=== PATIENT | female | born 1960 | race Caucasian/White ===

== ENCOUNTER → 2016-06-27 | Outpatient (CLI) | payer BC ==
[2016-06-27 19:48] LABS: Basophils # (A) 0.1 k/uL (0-0.2); Basophils % (A) 1 %; CH 30.4; CHCM 32.3; Eosinophils % (A) 1 %; HCT 41.9 % (34.0-46.0); HDW 2.45; HGB 13.7 gm/dL (11.4-16.0); Luc # (Auto) 0.14; Luc % (Auto) 2; Lymphocytes # (A) 2.2 k/uL (1.0-4.8); Lymphocytes % (A) 34 %; MCH 30.9 pg (25.0-35.0); MCHC 32.7 g/dL (31.0-37.0); MCV 94.5 fL (80.0-100.0); Monocytes # (A) 0.5 k/uL (0-1.0); Monocytes % (A) 7 %; Neutrophils # (A) 3.6 k/uL (1.3-7.7); Neutrophils % (A) 56 %; RBC 4.43 m/uL (3.80-5.40); RDW 12.4 % (11.5-15.5); WBC 6.6 k/uL (3.8-10.6); WBC (Perox) 6.38
[2016-06-27 20:15] LABS: Follicle Stimulating Hormone 25.8 mIU/mL
== END ==
LOC: MMGSC 16:57
PROVIDERS: ATTEND Family Medicine
DX: R53.83 Other fatigue (principal); E34.9 Endocrine disorder, unspecified
CPT/HCPCS: 36415; 82670; 83001; 83002; 84403; 84439; 84443; 85025

== ENCOUNTER → 2016-10-02 | Outpatient (CLI) | payer BC ==
[2016-10-02 19:03] LABS: Follicle Stimulating Hormone 24.8 mIU/mL
== END ==
LOC: MMGSC 16:01
PROVIDERS: ATTEND Family Medicine
DX: Z09 Encounter for follow-up examination after completed treatment for conditions other than malignant neoplasm (principal); Z79.890 Hormone replacement therapy
CPT/HCPCS: 36415; 82670; 83001; 83002

== ENCOUNTER → 2017-09-24 | Outpatient (CLI) | payer BC ==
--- NOTE | 2017-09-25 08:13 | MM ---
Reason for exam: screening (asymptomatic). Last mammogram was performed 5 years and 2 months ago. History: Patient is postmenopausal and is nulliparous. Benign left mammotome panel of the left breast, November 21, 2007. Took hormonal contraceptives for 1 year beginning at age 22. Physical Findings: A clinical breast exam by your physician is recommended on an annual basis and results should be correlated with mammographic findings. MG 3D Screening Mammo W/Cad Bilateral CC and MLO view(s) were taken. Technologist: RT Nidia (R)(M) Prior study comparison: July 10, 2012, [facility] DIGITAL LEFT BREAST MAMMOGRAM w/CAD. April 17, 2012, bilateral digital screening mammo w/CAD. The breast tissue is heterogeneously dense. This may lower the sensitivity of mammography. Previous mammotome biopsy in the left breast. There is no discrete abnormality. ASSESSMENT: Benign, BI-RAD 2 RECOMMENDATION: Routine screening mammogram of both breasts in 1 year.
== END | disposition home or self-care (01) ==
LOC: RADMAMWWP 11:09
PROVIDERS: ATTEND Family Medicine
DX: Z12.31 Encounter for screening mammogram for malignant neoplasm of breast (principal)
CPT/HCPCS: 77063; 77067

== ENCOUNTER → 2017-10-09 | Outpatient (CLI) | payer BC ==
--- NOTE | 2017-10-09 15:28 | US ---
EXAMINATION TYPE: US thyroid st tissue head/neck DATE OF EXAM: 10/09/2017 COMPARISON: US 2009 CLINICAL HISTORY: E04.1 NODULE. Pt states difficulty swallowing, possible nodules felt on Dr's examin ation GLAND SIZE: Right Lobe: 4.4 x 1.3 x 1.3 cm Overall Parenchyma: Slightly heterogeneous Left Lobe: 4.2 x 0.8 x 1.1 cm Overall Parenchyma: Slightly heterogeneous Isthmus Thickness: 0.3 cm Bilateral neck scanned, no evidence of lymphadenopathy. Thyroid slightly heterogeneous with no eviden ce of nodules. IMPRESSION: Slightly heterogenous thyroid gland without discrete nodule. Correlate with laboratory values to excl ude thyroiditis.
== END | disposition home or self-care (01) ==
LOC: RADUSWWP 15:00
PROVIDERS: ATTEND Family Medicine
DX: E04.1 Nontoxic single thyroid nodule (principal)
CPT/HCPCS: 76536

== ENCOUNTER → 2022-01-23 | Outpatient (CLI) | payer BC ==
--- NOTE | 2022-01-24 18:20 | MM ---
Reason for Exam: Screening (asymptomatic). Last mammogram was performed 4 year(s) and 4 month(s) ago. Patient History: Menarche at age 15. Patient has no children. Postmenopausal. Hormonal Contraceptives, starting at age 22 for 1 year. 11/21/2007, Benign Core Biopsy on the left side. Risk Values: Tiffanie 5 year model risk: 1.8%. NCI Lifetime model risk: 9.8%. Prior Study Comparison: 04/17/2012 Bilateral Screening Mammogram, [facility]. 07/10/2012 Left Diagnostic Mammogram, [facility]. 09/24/2017 Bilateral Screening Mammogram, [facility]. Tissue Density: There are scattered fibroglandular densities. Findings: Analyzed By CAD. Chronic low density nodularity, likely intramammary lymph node upper outer quadrant left breast. Microclip posterior superior left breast from prior biopsy. No significant change from prior exams. Overall Assessment: Benign, BI-RAD 2 Management: Screening Mammogram of both breasts in 1 year. 1. Patient should continue monthly self breast exams. 2. A clinical breast exam by your physician is recommended on an annual basis. 3. This exam should not preclude additional follow-up of suspicious palpable abnormalities. Electronically signed and approved by: Jordi Butler M.D. Radiologist
== END | disposition home or self-care (01) ==
LOC: RADMAMWWP 12:51
PROVIDERS: ATTEND Family Medicine
DX: Z12.31 Encounter for screening mammogram for malignant neoplasm of breast (principal); Z78.0 Asymptomatic menopausal state
CPT/HCPCS: 77063; 77067

== ENCOUNTER → 2024-02-07 | Outpatient (CLI) | payer BC ==
--- NOTE | 2024-02-07 17:03 | BD ---
EXAMINATION TYPE: Axial Bone Density DATE OF EXAM: 02/07/2024 CLINICAL HISTORY: 63 years old Female. ICD-10 CODE: Z780 HARMONY STATE , Z78.0 Height: 65.5 Weight: 229.0 FRAX RISK QUESTIONS: Alcohol (3 or more units per day): no Family History (Parent hip fracture): no Glucocorticoids (More than 3mos): no (Ex: prednisone, prednisolone, methylprednisolone, dexamethasone, and hydrocortisone). History of Fracture in Adulthood: wrist Secondary Osteoporosis: 1. Type 1 Diabetes: no 2. Hyperthyroidism: no 3. Menopause before 45: no 4. Malnutrition: no 5. Chronic liver disease: no Rheumatoid Arthritis: no Current Tobacco Use: no RISK FACTORS HISTORY OF: Hip Fracture (Right/Left): no Spine Fracture: no History of Wrist Fracture: Lt Wrist When: age 61 Surgery to Spine/Hip(right/left)/Wrist (right/left): lt wrist When: age 61 MEDICATIONS: Thyroid Medications: Levothyroxine How Long: past 10 years Osteoporosis Medications: no EXAM MEASUREMENTS: Bone mineral densitometry was performed using the [employer] System. Bone mineral density as measured about the Lumbar spine is: ----- L1-L4(G/cm2): 0.999 T Score Values are as follows: ----- L1: -1.9 ----- L2: -2.5 ----- L3: -1.6 ----- L4: -0.4 ----- L1-L4: -1.5 Z Score Values are as follows: ----- L1: -1.8 ----- L2: -2.4 ----- L3: -1.4 ----- L4: -0.3 ----- L1-L4: -1.3 Baseline Study Bone mineral density about the R hip (g/cm2): 0.951 Bone mineral density about the L hip (g/cm2): 0.919 T Score values are as follows: -----R Neck: -1.2 -----L Neck: -1.6 -----R Total: -0.4 -----L Total: -0.7 Z Score values are as follows: -----R Neck: -0.6 -----L Neck: -1.1 -----R Total: -0.3 -----L Total: -0.5 Baseline Study FRAX%s: The graph provided illustrates a 13.7% chance for a major osteoporotic fx and a 1.4% chance f or the hips probability for fx in 10 years time. IMPRESSION: Osteopenia (T Score between -2.5 and -1). There is slightly increased risk of fracture and the patient may be considered for treatment. Re-Screen 2-5 years. NOTE: T-SCORE=SD OF THE YOUNG ADULT MEAN. [facility], , 02/07/2024 5:01 PM
--- NOTE | 2024-02-11 08:02 | MM ---
Reason for Exam: Screening (asymptomatic). Last mammogram was performed 2 year(s) and 0 month(s) ago. Patient History: Menarche at age 15. Patient has no children. Postmenopausal. Hormonal Contraceptives, starting at age 22 for 1 year. 11/21/2007, Benign Core Biopsy on the left side. Risk Values: Tiffanie 5 year model risk: 1.9%. NCI Lifetime model risk: 9.3%. Prior Study Comparison: 07/10/2012 Left Diagnostic Mammogram, [facility]. 09/24/2017 Bilateral Screening Mammogram, [facility]. 01/23/2022 Bilateral MG 3D screening mammo w/cad, [facility]. Tissue Density: The breasts are heterogeneously dense, which may obscure small masses. Findings: Analyzed By CAD. There is no suspicious group of microcalcifications or new suspicious mass in either breast. Surgical clip left breast. Tiny appearing chronic nodularity stable compared to multiple prior exams. Overall Assessment: Benign, BI-RAD 2 Management: Screening Mammogram of both breasts in 1 year. . Patient should continue monthly self-breast exams. A clinical breast exam by your physician is recommended on an annual basis. This exam should not preclude additional follow-up of suspicious palpable abnormalities. Note on Tiffanie scores and lifetime risk: 1. A Tiffanie score greater than 3% is considered moderate risk. If this is the case, consider specialist referral to assess eligibility for a risk reducing agent. 2. If overall lifetime risk for the development of breast cancer is 20% or higher, the patient may qualify for future screening with alternating mammogram and breast MRI. [facility], , 02/11/2024 7:59 AM. Electronically signed and approved by: Oleg Keller M.D. Radiologis
== END | disposition home or self-care (01) ==
LOC: RADMAMWWP 12:33
PROVIDERS: ATTEND Family Medicine
DX: Z12.31 Encounter for screening mammogram for malignant neoplasm of breast (principal); R92.333 Mammographic heterogeneous density, bilateral breasts; M85.89 Other specified disorders of bone density and structure, multiple sites; Z78.0 Asymptomatic menopausal state
CPT/HCPCS: 77063; 77067; 77080

== ENCOUNTER → 2024-02-27 | Outpatient (CLI) | payer BC ==
--- NOTE | 2024-02-27 12:26 | MR ---
EXAMINATION TYPE: MR lumbar spine wo con DATE OF EXAM: 02/27/2024 12:18 PM COMPARISON: None. CLINICAL INDICATION: Female, 64 years old with history of M48.062 SPINAL STENOSIS, LUMBAR REGION WITH NEUROG, Chronic lower back pain, radiates into both hips. TECHNIQUE: Multiplanar, multisequence images of the lumbar spine were acquired without IV contrast. L1-L2: Normal disc appearance without desiccation. No herniation, protrusion or disc bulging. No ca nal stenosis is present. Foramina are patent bilaterally. L2-L3: Normal disc appearance without desiccation. No herniation, protrusion or disc bulging. No ca nal stenosis is present. Foramina are patent bilaterally. L3-L4: Normal disc appearance without desiccation. No herniation, protrusion or disc bulging. No ca nal stenosis is present. Foramina are patent bilaterally. L4-L5: Mild decreased signal and loss of height with the moderate posterior disc bulge. Hypertrophy l igamentum flavum and facet joint arthropathy resulting in [id number] central stenosis. Moderate bilateral foraminal encroachment. L5-S1: Mild disc desiccation. Right paracentral disc bulge with right lateral recess stenosis and rig ht foraminal encroachment. No central stenosis. Lumbar segments are intact. No paraspinal masses are identified. Conus medullaris has a normal appe arance. Bone marrow signal is heterogenous and this could reflect bone marrow reconversion. Correlate with CBC. IMPRESSION: 1. Degenerative disc disease as discussed. 2. Central stenosis at L4-5. 3.Bone marrow signal is heterogenous and this could reflect bone marrow reconversion. Correlate with CBC. [facility], , 02/27/2024 12:24 PM
== END | disposition home or self-care (01) ==
LOC: RADMRIMAIN 11:19
PROVIDERS: ATTEND Orthopaedic Surgery Orthopaedic Surgery of the Spine
DX: M51.360 Other intervertebral disc degeneration, lumbar region with discogenic back pain only (principal); M48.062 Spinal stenosis, lumbar region with neurogenic claudication
CPT/HCPCS: 72148